=== PATIENT | female | born 1965 | race Caucasian/White ===

== ENCOUNTER 2016-10-29 02:09 | Observation (INO) | payer BC ==
[2016-10-29] VITALS (9 sets, daily range): BP systolic 108–163; BP diastolic 68–109
[~2016-10-29] VITALS: Ht 162.6 cm; Wt 87.6 kg
[~2016-10-29 02:09] MED LIST: AERONEB GO NEB1 EACH MC; ALBUTEROL2.5 MG/NEB INH; ALLEGRA 180MG180 MG PO; CELEXA 20MG TAB20 MG PO; CRESTOR10 MG PO; CRESTOR5 MG PO; ENJUVIA0.3 MG PO; ESCITALOPRAM10 M1 PO; FLEXERIL10 M1 PO; FOSAMAX70 MG PO; LEXAPRO 10 MG T10 MG PO; Mobic7.5 MG PO; PERCOCET 5/3251 EACH PO; PREDNISONE 5MG.5 MG PO; PREMARIN0.3 MG PO
--- NOTE | 2016-10-29 02:54 | Emergency Room Report ---
See Addendum History of Present Illness Time Seen by MD Salinas Presenting Problem in Triage Pt arrived:Wheelchair Presenting Problem:C/O MID CHEST PAIN WITH SOB AND WHEEZING WITH PRODUCTIVE COUGH WITH YELLOW SPUTUM. HAD BIOPSY OF NODULES OF LUNG ON SATURDAY AT [facility]. WAS SEEN IN THIS ED ON SATURDAY AND STARTED ON STEROIDS AND PRESCRIBED NEBS BUT UNABLE TO GET NEB MACHINE TIL SATURDAY. 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 N Clinical Suspician of Infection? Y Mental Status: 1 - Regular (Normal Baseline) Sepsis Risk:Severe Sepsis Risk Have you (or family members/close friends) recently traveled outside the [place]? N If Yes, where/when: Have you had exposure to infectious disease within the past month? N TB? Other? Specify: Source patient, RN notes reviewed, family, old records Exam Limitations no limitations Comment yellow sputum with wheezing over the last 2 days - was seen at with bx and was in the ed sat Cardiac Chest Pain Chest pain indicative of cardiac No Timing/Duration this evening Severity moderate ALLERGIES Coded Allergies: No Known Allergies (09/25/16) Home Medications Active Scripts Nebulizer (Aeroneb Go Nebuliser) 1 EACH QID #1 EACH Prov: 10/27/16 ALBUTEROL (Albuterol 0.083% Neb) 2.5 MG INH QID #120 VIAL Ref 1 Prov: 10/27/16 Prednisone (Prednisone 5MG) 5 MG PO DIRECTED #39 TAB Prov: 10/27/16 Reported Medications Rosuvastatin Calcium (Crestor) 5 MG PO DAILY Conjugated Estrogens (Premarin) 0.3 MG PO DAILY Alendronate Sodium (Fosamax) 70 MG PO WEEKLY Fexofenadine Hydrochloride (Fatou 180MG Tablet) 180 MG PO DAILY Escitalopram Oxalate 10 MG PO DAILY #90 History Medical History General CAD? No Angina: No IN: No Hypertension? No Hyperlipidemia? Yes CHF? No DVT? No PE? No COPD? No Asthma? No Anemia? No GERD? No Gastric ulcers? No GI Bleed? No Hernia? No Thyroid Problems? No Hypothyroidism? No CVA? No Seizures? No Diabetes? No Renal Insuffiency? No End Stage Renal Disease? No UTI? Yes Stones? No GB Disease: No Nephritic Syndrome? No Asplenia? No Hepatitis? No Sickle Cell Disease? No Arthritis? Yes Migraines? No Cataracts? No Glaucoma? No MRSA? No HIV? No TB? No Anxiety? Yes Depression? No Cancer? No More? 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 Respiratory cough, shortness of breath, wheezing Cardiovascular denies chest pain, denies palpitations, denies syncope Gastrointestinal denies abdominal pain, denies diarrhea, denies vomiting Genitourinary denies: dysuria, frequency, hesitancy. Musculoskeletal denies back pain, denies joint pain, denies joint swelling, denies neck pain Skin denies rash Psychiatric/Neurological denies headache, denies seizure Physical Exam Vital Signs Vital Signs Date Time Temp Pulse Resp B/P Pulse O2 O2 Flow FiO2 Ox Delivery Rate 10/29 0349 99.0 104 24 134/91 95 10/29 0313 99.0 94 24 146/95 99 10/29 0242 99.0 104 24 153/93 94 10/29 0214 99.0 109 24 163/109 96 - WBC >12,000 or <4,000 or 10% bands? 2 or more SIRS Criteria Met? B/P:134/91 MAP:127 Creatinine >2.0? UA output<0.5ml/kg/hr for 2 hrs? Platelet count >100,000? Lactate >2.0mmol/1? INR >1.2 or PTT > than 60 sec? Evidence of Organ Dysfunction? Provider documented clinical suspician of infection? Y Sepsis Criteria Count: 2 Sepsis Risk: General Appearance no apparent distress Eye Exam - bilateral eye PERRL, bilateral eye EOMI Ear, Nose, Throat normal ENT inspection Neck supple Respiratory Status No: respiratory distress. Lung Sounds bilateral: rhonchi, wheezing. 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 No Results/Orders Laboratory Tests 10/29/16 0306: B-Natriuretic Peptide Cancelled 10/29/16 0240: Lactic Acid 1.6 10/29/16 0240: Sodium 139, Potassium 3.6, Chloride 103, Carbon Dioxide 26, BUN 17, Creatinine 0.8, Estimated Creat Clear 111, Estimated GFR (MDRD) 75, Glucose 132 H, Calcium 8.4 L, Total Bilirubin 0.6, AST 20, ALT 21, Alkaline Phosphatase 81, Creatine Kinase 154, CK-MB (CK-2) Rel Index 1.0, CK and CKMB Interp 1.6, Troponin I < 0.02, B-Natriuretic Peptide 47, Total Protein 7.8, Albumin 3.7, Globulin 4.1 H, Albumin/Globulin Ratio 0.9 L, WBC 16.1 H, RBC 5.12, Hgb 15.3, Hct 44.6, MCV 87.0, RDW 13.3, Plt Count 227, MPV 6.8 L, Gran % 85.1 H, Gran # 13.7 H, Total Counted 100, Lymphocytes % 8.9 L, Monocytes % 4.7, Eosinophils % 1.2, Basophils % 0.1, Neutrophils 84 H, Band Neutrophils 9 H, Lymphocytes (Manual) 6 L, Lymphocytes # 1.4, Monocytes (Manual) 1 L, Monocytes # 0.8, Eosinophils # 0.2, Basophils # 0.0, RBC/WBC/PLT Morphology NORMAL, Platelet Estimate NORMAL, PUBS MCHC 34.3, MCH 29.8 Current Medication Orders Sig/Alix Start time Last Medication Dose Route Stop Time Status Admin Furosemide 40 MG ONCE ONE 10/29 314 DC 10/29 IV 10/29 Methylprednisolone 125 MG ONCE ONE 10/29 314 DC 10/29 Sodium Succinate IV 10/29 Furosemide 0 .STK-MED ONE 08/21 0308 DC .ROUTE Methylprednisolone 0 .STK-MED ONE 10/29 0308 DC Sodium Succinate .ROUTE Albuterol/Ipratropium 0 .STK-MED ONE 10/29 0306 DC INH Albuterol 2.5 MG ONCE ONE 10/29 0300 DC 10/29 INH 10/29 030 0321 Aspirin 324 MG ONCE ONE 10/29 0230 DC 10/29 PO 10/29 023 0227 Aspirin 0 .STK-MED ONE 10/29 022 DC .ROUTE Sodium Chloride 10 ML PRN PRN 10/29 021 AC IV 10/30 021 Orders Procedure Date/time Status RT REQUEST ALBUTEROL NEB 10/29 025 Active CHEST-PORTABLE 10/29 025 Active DIFFERENTIAL-WBC 10/29 024 Complete ELECTROCARDIOGRAM REQUEST 10/29 212 Active IV SALINE LOCK 10/29 212 Active 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 ST/Twave chgs XRAY/CT/US XRAY/CT/US XRAY chest XR interpretation by reviewed by me Xray Results abnormal (congestion) Departure Departure Time of Disposition 0412 Disposition Still a Patient Clinical Impression Primary Impression: CAP (community acquired pneumonia) Qualifiers: Laterality: right Lung location: unspecified part of lung Qualified Code: J18.9 - Pneumonia, unspecified organism Condition STABLE Referrals Bj Lee MD (Family) discussed with dr lee ED Critical Care Critical Care No at [id number]
--- NOTE | 2016-10-29 02:54 | Emergency Room Report ---
See Addendum History of Present Illness Time Seen by MD Salinas Presenting Problem in Triage Pt arrived:Wheelchair Presenting Problem:C/O MID CHEST PAIN WITH SOB AND WHEEZING WITH PRODUCTIVE COUGH WITH YELLOW SPUTUM. HAD BIOPSY OF NODULES OF LUNG ON SATURDAY AT [facility]. WAS SEEN IN THIS ED ON SATURDAY AND STARTED ON STEROIDS AND PRESCRIBED NEBS BUT UNABLE TO GET NEB MACHINE TIL SATURDAY. 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 N Clinical Suspician of Infection? Y Mental Status: 1 - Regular (Normal Baseline) Sepsis Risk:Severe Sepsis Risk Have you (or family members/close friends) recently traveled outside the [place]? N If Yes, where/when: Have you had exposure to infectious disease within the past month? N TB? Other? Specify: Source patient, RN notes reviewed, family, old records Exam Limitations no limitations Comment yellow sputum with wheezing over the last 2 days - was seen at with bx and was in the ed sat Cardiac Chest Pain Chest pain indicative of cardiac No Timing/Duration this evening Severity moderate ALLERGIES Coded Allergies: No Known Allergies (09/25/16) Home Medications Active Scripts Nebulizer (Aeroneb Go Nebuliser) 1 EACH QID #1 EACH Prov: 10/27/16 ALBUTEROL (Albuterol 0.083% Neb) 2.5 MG INH QID #120 VIAL Ref 1 Prov: 10/27/16 Prednisone (Prednisone 5MG) 5 MG PO DIRECTED #39 TAB Prov: 10/27/16 Reported Medications Rosuvastatin Calcium (Crestor) 5 MG PO DAILY Conjugated Estrogens (Premarin) 0.3 MG PO DAILY Alendronate Sodium (Fosamax) 70 MG PO WEEKLY Fexofenadine Hydrochloride (Fatou 180MG Tablet) 180 MG PO DAILY Escitalopram Oxalate 10 MG PO DAILY #90 History Medical History General CAD? No Angina: No [place]: No Hypertension? No Hyperlipidemia? Yes CHF? No DVT? No PE? No COPD? No Asthma? No Anemia? No GERD? No Gastric ulcers? No GI Bleed? No Hernia? No Thyroid Problems? No Hypothyroidism? No CVA? No Seizures? No Diabetes? No Renal Insuffiency? No End Stage Renal Disease? No UTI? Yes Stones? No GB Disease: No Nephritic Syndrome? No Asplenia? No Hepatitis? No Sickle Cell Disease? No Arthritis? Yes Migraines? No Cataracts? No Glaucoma? No MRSA? No HIV? No TB? No Anxiety? Yes Depression? No Cancer? No More? 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 Respiratory cough, shortness of breath, wheezing Cardiovascular denies chest pain, denies palpitations, denies syncope Gastrointestinal denies abdominal pain, denies diarrhea, denies vomiting Genitourinary denies: dysuria, frequency, hesitancy. Musculoskeletal denies back pain, denies joint pain, denies joint swelling, denies neck pain Skin denies rash Psychiatric/Neurological denies headache, denies seizure Physical Exam Vital Signs Vital Signs Date Time Temp Pulse Resp B/P Pulse O2 O2 Flow FiO2 Ox Delivery Rate 10/29 0349 99.0 104 24 134/91 95 10/29 0313 99.0 94 24 146/95 99 10/29 0242 99.0 104 24 153/93 94 10/29 0214 99.0 109 24 163/109 96 - WBC >12,000 or <4,000 or 10% bands? 2 or more SIRS Criteria Met? B/P:134/91 MAP:127 Creatinine >2.0? UA output<0.5ml/kg/hr for 2 hrs? Platelet count >100,000? Lactate >2.0mmol/1? INR >1.2 or PTT > than 60 sec? Evidence of Organ Dysfunction? Provider documented clinical suspician of infection? Y Sepsis Criteria Count: 2 Sepsis Risk: General Appearance no apparent distress Eye Exam - bilateral eye PERRL, bilateral eye EOMI Ear, Nose, Throat normal ENT inspection Neck supple Respiratory Status No: respiratory distress. Lung Sounds bilateral: rhonchi, wheezing. 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 No Results/Orders Laboratory Tests 10/29/16 0306: B-Natriuretic Peptide Cancelled 10/29/16 0240: Lactic Acid 1.6 10/29/16 0240: Sodium 139, Potassium 3.6, Chloride 103, Carbon Dioxide 26, BUN 17, Creatinine 0.8, Estimated Creat Clear 111, Estimated GFR (MDRD) 75, Glucose 132 H, Calcium 8.4 L, Total Bilirubin 0.6, AST 20, ALT 21, Alkaline Phosphatase 81, Creatine Kinase 154, CK-MB (CK-2) Rel Index 1.0, CK and CKMB Interp 1.6, Troponin I < 0.02, B-Natriuretic Peptide 47, Total Protein 7.8, Albumin 3.7, Globulin 4.1 H, Albumin/Globulin Ratio 0.9 L, WBC 16.1 H, RBC 5.12, Hgb 15.3, Hct 44.6, MCV 87.0, RDW 13.3, Plt Count 227, MPV 6.8 L, Gran % 85.1 H, Gran # 13.7 H, Total Counted 100, Lymphocytes % 8.9 L, Monocytes % 4.7, Eosinophils % 1.2, Basophils % 0.1, Neutrophils 84 H, Band Neutrophils 9 H, Lymphocytes (Manual) 6 L, Lymphocytes # 1.4, Monocytes (Manual) 1 L, Monocytes # 0.8, Eosinophils # 0.2, Basophils # 0.0, RBC/WBC/PLT Morphology NORMAL, Platelet Estimate NORMAL, PUBS MCHC 34.3, MCH 29.8 Current Medication Orders Sig/Alix Start time Last Medication Dose Route Stop Time Status Admin Furosemide 40 MG ONCE ONE 10/29 314 DC 10/29 IV 10/29 Methylprednisolone 125 MG ONCE ONE 10/29 314 DC 10/29 Sodium Succinate IV 10/29 Furosemide 0 .STK-MED ONE 08/21 0308 DC .ROUTE Methylprednisolone 0 .STK-MED ONE 10/29 0308 DC Sodium Succinate .ROUTE Albuterol/Ipratropium 0 .STK-MED ONE 10/29 0306 DC INH Albuterol 2.5 MG ONCE ONE 10/29 0300 DC 10/29 INH 10/29 030 0321 Aspirin 324 MG ONCE ONE 10/29 0230 DC 10/29 PO 10/29 023 0227 Aspirin 0 .STK-MED ONE 10/29 022 DC .ROUTE Sodium Chloride 10 ML PRN PRN 10/29 021 AC IV 10/30 021 Orders Procedure Date/time Status RT REQUEST ALBUTEROL NEB 10/29 025 Active CHEST-PORTABLE 10/29 025 Active DIFFERENTIAL-WBC 10/29 024 Complete ELECTROCARDIOGRAM REQUEST 10/29 212 Active IV SALINE LOCK 10/29 212 Active 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 ST/Twave chgs XRAY/CT/US XRAY/CT/US XRAY chest XR interpretation by reviewed by me Xray Results abnormal (congestion) Departure Departure Time of Disposition 0412 Disposition Still a Patient Clinical Impression Primary Impression: CAP (community acquired pneumonia) Qualifiers: Laterality: right Lung location: unspecified part of lung Qualified Code: J18.9 - Pneumonia, unspecified organism Condition STABLE Referrals Bj Lee MD (Family) discussed with dr lee ED Critical Care Critical Care No at 0293
[2016-10-29 02:58] LABS: HEMOGLOBIN 15.3 g/dL (12.2-16.2); LYMPH # 1.4 K/mm3 (0.7-4.5); LYMPH % 8.9 % (10-50.0)
[2016-10-29 03:13] LABS: NEUTROPHILS 84 % (42-76)
[2016-10-29 03:23] LABS: BUN 17 mg/dL (7-18); GFR (ESTIMATED) 75 ML/MIN (59-)
[2016-10-29] MEDS ORDERED: ESTRADIOL0.5 MG PO (05:39)
[2016-10-29] MEDS ORDERED: BISOPROLOL 5MG T5 MG PO (05:40)
[2016-10-29] MEDS ORDERED: ZANTAC 150150 MG PO (05:41)
--- NOTE | 2016-10-29 05:51 | RADIOLOGY REPORT PS360 ---
CHEST-PORTABLE HISTORY: None c/o chest pain and sob ORDERING PHYSICIAN: Bj Luna MD PATIENT AGE: 51 years COMPARISON: 10/27/2016 FINDINGS: Study is somewhat underpenetrated. There is mild cardiomegaly and the pulmonary vessels are slightly prominent. This raises the suspicion of mild CHF. No lobar consolidation or collapse. No obvious pneumothorax. IMPRESSION: Somewhat limited exam with suggestion of mild CHF. No evidence of pneumothorax
--- NOTE | 2016-10-29 07:28 | PHARMACY CLINIC NOTE ---
Patient Demographics Patient Demographics Admission date: 10/29/16 Date: 10/29/16 Time: 726 Allergies Coded Allergies: No Known Allergies (09/25/16) HEIGHT- FT: 5 IN: 4.00 K.629 VTE General Information Labs: Laboratory Tests 10/29 0240 Hematology Hgb (12.2 - 16.2 g/dL) 15.3 Hct (37.0 - 47.0 %) 44.6 Plt Count (142 - 424 K/mm3) 227 Disclaimer The following section includes nursing documentation that has been pulled in for pharmacy review. Patient's VTE score: 7 Patient's VTE Risk: MOD RISK Clinical trial participant? No VTE prophylaxis [id number] VTE prophylaxis ordered? Yes Type of prophylaxis/treatment: ANALILIA at 0727
--- NOTE | 2016-10-29 08:50 | HISTORY AND PHYSICAL REPORT ---
Demographics: Admit date: 10/29/16 Chief complaint: Shortness of air/cough PRIMARY DIAGNOSIS: CAP Allergies: Coded Allergies: No Known Allergies (09/25/16) History of present illness: History of present illness: 51-year-old white female with obstructive lung disease of uncertain etiology, whose had reduction in lung function over the past year or so, and workup through pulmonary service culminated in bronchoscopy procedure at [facility] on October 26. The procedure was uncomplicated, and patient was discharged. Unfortunately, the day after, patient began to have scant levels of hemoptysis and slight shortness of air, and came to the emergency department here where labs, chest x-ray and evaluation were unremarkable and she was discharged home. However, the patient failed to improve, and began to have shortness of air, low- grade fevers and coughing up yellow sputum with occasional blood tinge. Came back to the emergency department early in the morning hours today, found to have low-grade temperature elevation, leukocytosis, evidence of "CHF" on chest x-ray, and was admitted to hospital for IV steroids and antibiotics This morning she feels somewhat better but continues to feel like her breathing is "tight." Past medical history: Family HX Diabetes Yes CAD No Hypertension Yes Hyperlipidemia Yes Cancer No TB No Immunization HX DT/Tetanus 5-10 Years Ago Flu LAST YEAR Pneumonia Received In Past TB Test in last year No General CAD? No Angina: No [place]: No Hypertension? No Hyperlipidemia? Yes CHF? No DVT? No PE? No COPD? No Asthma? No Anemia? No GERD? No Gastric ulcers? No GI Bleed? No Hernia? No Thyroid Problems? No Hypothyroidism? No CVA? No Seizures? No Diabetes? No Renal Insuffiency? No UTI? Yes Stones? No GB Disease: No Nephritic Syndrome? No Asplenia? No Hepatitis? No Sickle Cell Disease? No Arthritis? Yes Migraines? No Cataracts? No Glaucoma? No MRSA? No HIV? No TB? No Anxiety? Yes Depression? No Cancer? No More? 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 No Patien't marital status is Patient's support system is excellent Review of systems: Constitutional fever, malaise, weakness. Respiratory shortness of breath, SOB with excertion, SOB at rest. Cardiovascular No no symptoms reported Gastrointestinal/Abdominal No no symptoms reported Genitourinary No: no symptoms reported. Musculoskeletal No: no symptoms reported. Neurological No: see HPI. Exam: Lab data for last 24 hours: Laboratory Tests 10/29/16 0240: Lactic Acid 1.6 10/29/16 0240: Sodium 139, Potassium 3.6, Chloride 103, Carbon Dioxide 26, BUN 17, Creatinine 0.8, Estimated Creat Clear 111, Estimated GFR (MDRD) 75, Glucose 132 H, Calcium 8.4 L, Total Bilirubin 0.6, AST 20, ALT 21, Alkaline Phosphatase 81, Creatine Kinase 154, CK-MB (CK-2) Rel Index 1.0, CK and CKMB Interp 1.6, Troponin I < 0.02, B-Natriuretic Peptide 47, Total Protein 7.8, Albumin 3.7, Globulin 4.1 H, Albumin/Globulin Ratio 0.9 L, WBC 16.1 H, RBC 5.12, Hgb 15.3, Hct 44.6, MCV 87.0, RDW 13.3, Plt Count 227, MPV 6.8 L, Gran % 85.1 H, Gran # 13.7 H, Total Counted 100, Lymphocytes % 8.9 L, Monocytes % 4.7, Eosinophils % 1.2, Basophils % 0.1, Neutrophils 84 H, Band Neutrophils 9 H, Lymphocytes (Manual) 6 L, Lymphocytes # 1.4, Monocytes (Manual) 1 L, Monocytes # 0.8, Eosinophils # 0.2, Basophils # 0.0, RBC/WBC/PLT Morphology NORMAL, Platelet Estimate NORMAL, PUBS MCHC 34.3, MCH 29.8 Microbiology 10/29 709 SPUTUM: Sputum Culture - RES 10/29 709 SPUTUM: Gram Stain - RES 10/30 239 BLOOD: Anaerobic Blood Culture - RECD 10/30 239 BLOOD: Aerobic Blood Culture - RECD 10/30 239 BLOOD: Anaerobic Blood Culture - RECD 10/30 239 BLOOD: Aerobic Blood Culture - RECD Admission vital signs: 1ST Vital Signs Result Date Time Pulse Ox 96 10/29 213 B/P 163/109 10/29 213 Temp 99.0 10/29 213 Pulse 109 10/29 213 Resp 24 10/29 213 O2 Delivery ROOM AIR 10/29 516 Additional information: The patient is pleasant, alert, oriented x3. In no respiratory distress, does have audible rhonchi on expiration during conversation. Lungs have rhonchi and coarsened airway movements both expiratory and expiratory throughout all lung hopson, no basilar crackles and no actual wheezing noted. Her rate slightly tachycardic but regular. No murmurs. Abdomen soft. No clubbing , no cyanosis. No edema. Cranial nerves are symmetric. No deficits of peripheral strength or sensory examinations Plan: Problem List 1. Reactive airway disease 2. COPD (chronic obstructive pulmonary disease) Plan: Plan will be to observe in hospital. Agree with antibiotics and steroids while cultures are pending. Obviously await bronchoscopy results. Lasix was given in the emergency department with almost 1 L output. However, this has not significantly improved patient's dyspnea. Pulmonary consultation. at 0849
[2016-10-30 04:00] VITALS: BP 148/81
[2016-10-30 06:05] LABS: HEMOGLOBIN 14.4 g/dL (12.2-16.2); LYMPH # 0.8 K/mm3 (0.7-4.5); LYMPH % 4.6 % (10-50.0)
[2016-10-30 08:16] LABS: NEUTROPHILS 88 % (42-76)
--- NOTE | 2016-10-30 08:21 | ACUTE CARE PROGRESS NOTE (QUA) ---
Progress Notes Subjective Date 10/30/16 Time 0820 Note Patient is doing well through the night with no oxygen requirement, and normal vital signs with no tachypnea or significant tachycardia. She continues to have some rhonchi that is audible on exam without the stethoscope and some coarsening of her airway sounds bilaterally on expiration with minimal wheezing with forced expiration. Symmetric air movement noted. No crackles. Heart rate regular. Abdomen soft, patient awake and alert, no cyanosis. Objective Findings Last VS-Temp:98.0 B/P:148/81 Pulse:94 Resp:20 SaO2:95 ROOM AIR Last weight lbs:193 oz:3 K.629 Method:Bed Scales Assessment/Plan Problem List 1. Reactive airway disease 2. COPD (chronic obstructive pulmonary disease) Patient condition Improving Plan: continue current care, recheck chest x-ray. Dr. Lechuga consultation today. Probable discharge after this consultations accomplished. This inpt stay is expected to cross 2 MNs from start of care No at 0821
[2016-10-30 08:38] VITALS: BP 136/89
[2016-10-30 08:52] VITALS: BP 136/89
--- NOTE | 2016-10-30 11:51 | RADIOLOGY REPORT PS360 ---
CHEST(2 VIEWS-NOT PORTABLE) HISTORY: wheezing ORDERING PHYSICIAN: Bj Luna MD PATIENT AGE: 51 years COMPARISON: 10/29/2016 FINDINGS: Mild cardiomegaly with interval improvement in the pulmonary venous congestion.. There is increased density in the left lower lobe consistent with pneumonia and/or atelectatic change. Atelectatic changes are also present in the right perihilar region. No acute bony anomalies. IMPRESSION: Developing infiltrate and/or atelectatic change in the left lower lobe and right perihilar region.
[2016-10-30 12:21] VITALS: BP 142/88
--- NOTE | 2016-10-30 17:14 | CONSULT NOTE ---
Consult Note Note: Reason for consultation: Dyspnea post bronchoscopy. Requested by: Dr. Moore Chief complaint: "I got so short of breath." History of present illness: Mrs. Saravia is a 51-year-old woman whom I initially evaluated with practitioner Fabiana on October 08 of this year. She was sent by you because of persistent dyspnea, cough and wheezing which had progressed over the last several years. She had little or no response to inhaled bronchodilators and corticosteroids and an ALLERGY evaluation disclosed no significant response to any common allergens. She had a history of frequent tonsillitis as a child and tonsillectomy when she was in her 30s. She had also had frequent episodes of acute bronchitis and pneumonia on several occasions. Recurrent infections had not been a recent problem, however. She never smoked cigarettes. Spirometry disclosed moderate to severe obstruction without a significant response to inhaled bronchodilator. A CT scan of the chest performed on September 25 demonstrated "numerous noncalcified pulmonary nodules.associated with bilateral hilar and mediastinal adenopathy." There is evidence of remote granulomatous disease and that is calcification in the hilar region and in some of the mediastinal nodes. There is some nodularity along the LEFT major fissure in the upper lobe. Because of her prolonged symptoms despite never smoking, wheezing, especially over the tracheal area, lack of response to therapy and abnormalities on CT scan , I sent her for bronchoscopy which was accomplished last Saturday. She apparently vomited (according to her although this is not in the bronchoscopy note) and was not feeling well when she was discharged. She came to our emergency room 2 days later and was treated for an exacerbation of asthma. She continued to feel more short of breath, was coughing more and occasionally expectorating blood associated with wheezing and was admitted here 2 days ago. She has improved on corticosteroid and antibiotic therapy given for post bronchoscopy aspiration pneumonia. However, she is still not back to her baseline level of functioning. Past medical history: This is significant for Otuag-Pbgjezjts-Ycxwz syndrome treated with ablation therapy. She is on bisoprolol apparently for this. She also has a history of restless leg syndrome treated with ropinirole. Past surgical history: Cholecystectomy, hysterectomy, tonsillectomy and carpal tunnel surgery. Family history: This is negative for respiratory problems but there is a history of kidney cancer. Social history: She is and her is at the bedside. She has a son. Review of systems: Apart from the systems mentioned in the present illness, she has had occasional sores within her nose and nasal congestion intermittently; intermittent diarrhea, diffuse joint pains and a history of reflex sympathetic dystrophy. There is a history of anxiety. The rest of the 14 point review of systems is currently negative. On physical examination, Mrs. Saravia is a very pleasant, overweight woman who was sitting in bed at around 40 degrees elevation. She was in no acute distress but coughed intermittently. Vital signs: Blood pressure 142/88, pulse 93, temperature 98.1 (high of 99.4), respiratory rate 20 and oxygen saturation 94 percent on room air. HEENT: Sclerae clear; conjunctivae pink; EOMs full; pupils are equal, round and reactive to light and accommodation; oropharynx unremarkable. Neck: No adenopathy Chest: Symmetrical expansion; normal percussion note bilaterally; inspiratory and expiratory wheezes with an prominent inspiratory wheeze over the trachea just below the manubrium. No crackles. Heart: Regular rhythm; no murmur. Abdomen: Bowel sounds present; soft, nontender, no masses or organomegaly. Skin: No rash Musculoskeletal: No gabo arthritis Neurological: Grossly intact Extremities: No clubbing or edema. I personally reviewed the CT scan of the chest and the chest x-ray from today. On the x-ray, there is the appearance of a linear density near the RIGHT hilum and perhaps against the LEFT major fissure. Complete blood count demonstrates leukocytosis now since starting corticosteroids. A metabolic panel showed an elevated globulin. The glucose became elevated after starting corticosteroids. We had ordered laboratory testing when she was seen in [place] and her angiotensin-converting enzyme, sedimentation rate, antineutrophil cytoplasmic antibody, C-reactive protein and immunoglobulin profile were in the normal range or negative. An anti-nuclear antibody was weakly positive at 1-160 with a speckled pattern. After I evaluated her today, the biopsy results from the bronchoscopy returned and cytology of mediastinal nodes showed cells possibly consistent with granulomatous inflammation. Endobronchial biopsies of the RIGHT upper lobe showed chronic inflammatory cells. Cultures are pending. Assessment and plan: Mrs. Saravia has been troubled by persistent cough and wheezing and shortness of breath which is associated with abnormalities on CT scan of the chest. The CT findings do suggest Sarcoidosis but I'm not yet certain that this is the diagnosis. I'd like to reflect and get to know her better and follow up with her soon. She has an appointment with us on November 16. Although she is improved, she is really not back to her baseline level of functioning and I think should benefit from another day in the hospital. Thank you for the opportunity to participate in Mrs. Saravia's care. at [phone]
[2016-10-30 20:12] VITALS: BP 143/84
[2016-10-30 20:30] VITALS: BP 143/84
[2016-10-31 00:07] VITALS: BP 145/93
[2016-10-31 04:46] VITALS: BP 146/90
[2016-10-31 08:00] VITALS: BP 146/91
--- NOTE | 2016-10-31 08:21 | ACUTE CARE PROGRESS NOTE (QUA) ---
Progress Notes Subjective Date 10/31/16 Time 0817 Note Patient reports ongoing wheezing and some dyspnea with exertion but overall improved and feels like she rested better last night. Still with some cough but only occasional sputum production. Exam reveals pleasant female, breathing easily at rest, mild conversational dyspnea. Heart with RRR, lungs with diffuse wheezes, no focal rales. Abdomen is soft, + BS. No edema, extremities are warm. Moves all extremities, oriented without focal neurologic deficits. Patient/family reports: feeling better, cough, shortness of breath Nursing reports: shortness of breath Objective Findings Last VS-Temp:98.0 B/P:146/90 Pulse:84 Resp:18 SaO2:92 ROOM AIR Last weight lbs:193 oz:3 K.[id number] Method:Bed Scales Reviewed: medications, vital signs, lab results, consult note Assessment/Plan Problem List 1. Reactive airway disease 2. COPD (chronic obstructive pulmonary disease) 3. CAP (community acquired pneumonia) Qualifiers: Laterality: right Lung location: unspecified part of lung Qualified Code: J18.9 - Pneumonia, unspecified organism Patient condition Improving, Stable Plan: initiate discharge plan This inpt stay is expected to cross 2 MNs from start of care No
[2016-10-31 09:00] VITALS: BP 146/91
[2016-10-31] MEDS ORDERED: PREDNISONE 20MG20 MG PO (10:41)
[2016-10-31] MEDS ORDERED: ZITHROMAX Z PA250 MG PO (10:42)
[2016-10-31 12:11] VITALS: BP 158/95
--- NOTE | 2016-10-31 12:53 | DISCHARGE SUMMARY STANDARD ---
Demographics Admit date: 10/29/16 Discharge date: 10/31/16 History of present illness History of present illness 51-year-old white female with obstructive lung disease of uncertain etiology, whose had reduction in lung function over the past year or so, and workup through pulmonary service culminated in bronchoscopy procedure at [facility] on Saturday, October 26. The procedure was uncomplicated, and patient was discharged. Unfortunately, the day after, patient began to have scant levels of hemoptysis and slight shortness of air, and came to the emergency department here where labs, chest x-ray and evaluation were unremarkable and she was discharged home. However, the patient failed to improve, and began to have shortness of air, low- grade fevers and coughing up yellow sputum with occasional blood tinge. Came back to the emergency department early in the morning hours today, found to have low-grade temperature elevation, leukocytosis, evidence of "CHF" on chest x-ray, and was admitted to hospital for IV steroids and antibiotics This morning she feels somewhat better but continues to feel like her breathing is "tight." Hospital Course Hospital Course: Patient was admitted and started on community acquired protocol with zithromax and rocehin, as well as solumedrol IV. She gradually improved and has less dyspnea on day of discharge but persistent wheezing. She was seen yesterday by Dr Lechuga who recommended continue current care and FU with him in clinic as scheduled in November. Bronchoscopy cultures are still pending. On day of discharge her exam is slightly improved and she feels ready for DC with close FU. She will be discharged with PO prednisone 20mg BID and zithromax. Already has a nebulizer at home and a script for albuterol. She is anxious to get back to work which will be discussed during her office FU on Saturday. Discharge diagnoses Problem List 1. Reactive airway disease 2. COPD (chronic obstructive pulmonary disease) 3. CAP (community acquired pneumonia) Medications Medications: Discharge meds are as noted. Follow up Follow up in office in: 2 DAYS with: Bj Luna MD at [phone]
[2016-10-31 13:33] VITALS: BP 158/95
--- OUTSIDE RECORDS SUMMARY | 2016-12-12 04:45 | External Medical Summary Rpt ---
Demographics Preferred Language Chinese Marital Status Unknown Restorationism Affiliation Unknown Race Unknown Ethnic Group Unknown Author Author ADDISON Address Unknown Phone Immunization No patient found.
--- OUTSIDE RECORDS SUMMARY | 2016-12-12 04:45 | External Medical Summary Rpt ---
Author Author , ADDISON JAIME Address Unknown Phone [email or web address] Purpose Continuity of Care Document - 10-08-2016 through 2016 Problems Code Diagnosis DOS Provider Status J18.9 PNEUMONIA, UNSPECIFIED ORGANISM J44.9 CHRONIC OBSTRUCTIVE PULMONARY DISEASE, UNSPECIFIED J45.909 UNSPECIFIED ASTHMA, UNCOMPLICAT ED M25.559 PAIN IN UNSPECIFIED HIP Z12.31 Encounter for screening mammogram for malignant neoplasm of breast Results Labs Lab Lab Date Result Refere Interp Status Commen Order Detail nces retati t Range on BOBO SerPl-cCnc (11-16-2016 12:52) BOBO 36 U/L 9-67 complet SerPl-c 017 ed Cnc 12:52 CRP SerPl-mCnc (11-16-2016 12:52) CRP 0.8 0-0.9 complet SerPl-m 017 mg/dL ed Cnc 12:52 ESR Bld Qn (11-16-2016 12:33) ESR Bld 22 0-20 complet Qn 017 mm/hr ed 12:33 Differential panel, method unspecified - (11-02-2016 10:17) LYMPH 13 % 10% - Normal complet 017 50% ed 10:17 Platele NORMAL complet ts 017 ed [Presen 10:17 ce] in Blood by Light microsc opy Erythro NORMAL complet cyte 017 ed morphol 10:17 ogy finding [Identi fier] in Blood Differential panel, method unspecified - (10-30-2016 05:45) LYMPH 9 % 10% - Low complet 017 50% ed 05:45 Platele NORMAL complet ts 017 ed [Presen 05:45 ce] in Blood by Light microsc opy Differential panel, method unspecified - (10-29-2016 02:40) LYMPH 6 % 10% - Low complet 017 50% ed 02:40 Platele NORMAL complet ts 017 ed [Presen 02:40 ce] in Blood by Light microsc opy Erythro NORMAL complet cyte 017 ed morphol 02:40 ogy finding [Identi fier] in Blood Differential panel, method unspecified - (10-27-2016 14:02) LYMPH 5 % 10% - Low complet 017 50% ed 14:02 Platele NORMAL complet ts 017 ed [Presen 14:02 ce] in Blood by Light microsc opy BOBO SerPl-cCnc (10-08-2016 12:34) BOBO 63 U/L 9-67 complet SerPl-c 017 ed Cnc 12:34 IgE SerPl-aCnc (10-08-2016 12:34) IgE 4 kU/L 114 OR complet SerPl-a 017 LESS ed Cnc 12:34 JOHNIE Titr Ser HEp2 subst (10-08-2016 12:33) JOHNIE [id number] complet Titr 017 04 ed Ser 12:33 antibod HEp2 y titer subst measure ment SCT D160 POSITIV E THROUGH 1:160 DILUTIO N L JOHNIE Pat Ser IF-Imp (10-08-2016 12:33) JOHNIE Pat [id number] complet Ser 017 04 ed IF-Imp 12:33 Nucleol ar pattern SCT NCLR NUCLEOL AR L Neutrophil Ab Ser Ql FC (10-08-2016 12:33) Neutrop NONE NONE complet hil Ab 017 DETECTE DETECTE ed Ser Ql 12:33 D D FC
--- OUTSIDE RECORDS SUMMARY | 2016-12-12 04:45 | External Medical Summary Rpt ---
Author Author , ADDISON JAIME Address Unknown Phone [email or web address] Purpose Continuity of Care Document - 10-08-2016 [...] Titr Ser HEp2 subst (10-08-2016 12:33) JOHNIE [id number] complet Titr 017 04 ed Ser 12:33 antibod HEp2 y titer subst measure ment SCT D160 POSITIV E THROUGH 1:160 DILUTIO N L JOHNIE Pat Ser IF-Imp (10-08-2016 12:33) JOHNIE Pat [id number] complet Ser 017 04 ed IF-Imp 12:33 Nucleol ar pattern SCT NCLR NUCLEOL AR L Neutrophil Ab Ser Ql FC (10-08-2016 12:33) Neutrop NONE NONE complet hil Ab 017 DETECTE DETECTE ed Ser Ql 12:33 D D FC
--- OUTSIDE RECORDS SUMMARY | 2016-12-12 04:45 | External Medical Summary Rpt ---
Author Author [employer] Organization [employer] Address Unknown Phone Unavailable Purpose Continuity of Care Document - through 2016
--- OUTSIDE RECORDS SUMMARY | 2016-12-12 04:45 | External Medical Summary Rpt ---
Demographics Preferred Language Kazakh Marital Status Unknown Synagogue Affiliation Unknown Race Unknown Ethnic Group Unknown Author Author ADDISON Address Unknown Phone Immunization No patient found.
--- OUTSIDE RECORDS SUMMARY | 2016-12-12 04:46 | External Medical Summary Rpt ---
Demographics Preferred Language Stateless Marital Status Unknown Amish Affiliation Unknown Race Unknown Ethnic Group Unknown Author Author ADDISON Address Unknown Phone Immunization No patient found.
--- OUTSIDE RECORDS SUMMARY | 2016-12-12 04:46 | External Medical Summary Rpt ---
Author Author ADDISON Flavio, [employer] Address Unknown Phone Unavailable Results CBC W Auto Differential panel in Blood Observa Value Referen Units Interpr Notes Date tion ce etation Range Basophils 0 - 0.2 K/MM3 Normal No Nov 02 inform2016 [#/volume on in 10:17 AM ] in source Blood by data Automated count Basophils 0.1 - 2.0 % Normal No Nov 02 /100 inform2016 leukocyte on in 10:17 AM s in source Blood by data Automated count Eosinophi 0.0 - 0.4 K/mm3 Normal No Nov 02 ls 2016 [#/volume on in 10:17 AM ] in source Blood by data Automated count Eosinophi 0.1 - % Normal No Nov 02 ls/100 12.0 inform2016 leukocyte on in 10:17 AM s in source Blood by data Automated count Granulocy 1.8 - 7.8 K/mm3 High No Nov 02 karlos 2016 [#/volume on in 10:17 AM ] in source Blood by data Automated count Granulocy 37.0 - % High No Nov 02 karlos/100 80.0 2016 leukocyte on in 10:17 AM s in source Blood by data Automated count Hematocri 37.0 - % Normal No Nov 02 t [Volume 47.0 ati 2016 on in 10:17 AM Fraction] source of Blood data Hemoglobi 12.2 - g/dL No No Nov 02 n 16.2 informati informati 2016 [Mass/vol on in on in 10:17 AM ume] in source source Blood data data Lymphocyt 0.7 - 4.5 K/mm3 Normal No Nov 02 es inform2016 [#/volume on in 10:17 AM ] in source Unspecifi data ed specimen by Automated count Lymphocyt 10 - 50.0 % Low No Nov 02 es inform2016 [#/volume on in 10:17 AM ] in source Unspecifi data ed specimen by Automated count Erythrocy 27 - 31.2 pg Normal No Aug 25 te mean 2016 corpuscul on in 10:17 AM ar source hemoglobi data n [Entitic mass] Erythrocy 31.8 - g/dl Normal No Nov 02 te mean 35.4 2016 corpuscul on in 10:17 AM ar source hemoglobi data n concentra tion [Mass/vol ume] by Automated count Erythrocy 82.2 - fl Normal No Nov 02 te mean 97.8 2016 corpuscul on in 10:17 AM ar volume source [Entitic data volume] by Automated count Monocytes 0.1 - 1.0 K/mm3 Normal No Nov 022016 [#/volume on in 10:17 AM ] in source Blood by data Automated count Monocytes 1.7 - 9.3 % Normal No Nov 02 /100 2016 leukocyte on in 10:17 AM s in source Blood by data Automated count Platelet 7.4 - fl Low No Nov 02 mean 10.4 2016 volume on in 10:17 AM [Entitic source volume] data in Blood by Automated count Platelets 142 - 424 K/mm3 Normal No Nov 022016 [#/volume on in 10:17 AM ] in source Blood data Erythrocy 4.2 - 5.4 M/mm3 Normal No Nov 02 karlos 2016 [#/volume on in 10:17 AM ] in source Amniotic data fluid Erythrocy 11.5 - % Normal No Nov 02 te 17.5 2016 distribut on in 10:17 AM ion width source [Entitic data volume] by Automated count Leukocyte 4.8 - K/MM3 High No Nov 02 s 10.8 2016 [#/volume on in 10:17 AM ] in source Blood data Differential panel, method unspecified - Observa Value Referen Units Interpr Notes Date tion ce etation Range LYMPH 13 10 - 50 % Normal No Nov 022016 tion in 10:17 source AM data Monocytes 2 - 9 % Normal No Nov 02 /100 2016 leukocyte on in 10:17 AM s in source Blood by data Automated count Platele NORMAL No No No No Nov 02 ts informa informa informa inform2016 [Presen tion in tion in tion in tion in 10:17 ce] in source source source source AM Blood data data data data by Light microsc opy Neutrophi 42 - 76 % High No Nov 02 ls 2016 [#/volume on in 10:17 AM ] in source Blood by data Automated count Erythro NORMAL No No No No Nov 02 cyte informa informa informa informa 2017 morphol tion in tion in tion in tion in 10:17 ogy source source source source AM finding data data data data [Identi fier] in Blood Cells No #CELLS No No Nov 02 Counted informati informati informati 2016 Total [#] on in on in on in 10:17 AM in Blood source source source data data data Basic metabolic panel in Blood Observa Value Referen Units Interpr Notes Date ti ce etation Range Urea 7 - 18 mg/dL High No Nov 02 nitrogen informati 2016 [Mass/vol on in 10:17 AM ume] in source Serum or data Plasma Calcium 8.5 - mg/dL Normal No Nov 02 [Mass/vol 10.1 informati 2016 ume] in on in 10:17 AM Serum or source Plasma data Chloride 98 - 107 mmoL/L Normal No Nov 02 [Moles/vo informati 2016 lume] in on in 10:17 AM Serum or source Plasma data Carbon 21.0 - mmoL/L Normal No Nov 02 dioxide, 32.0 informati 2016 total on in 10:17 AM [Moles/vo source lume] in data Serum or Plasma Creatinin 0.55 - mg/dL Normal No Nov 02 e 1.02 informati 2016 [Mass/vol on in 10:17 AM ume] in source Serum or data Plasma Estimated 59- ML/MIN No REFERENCE Nov 02 informati RANGE: 2017 glomerula on in >60 10:17 AM r source ML/MIN/1. filtratio data 73 SQUARE n rate METERSIf (GF this patient is -A merican, then multiply theresult by 1.210. Glucose 74 - 106 mg/dL High No Nov 02 [Mass/vol informati 2016 ume] in on in 10:17 AM Serum or source Plasma data Potassium 3.5 - 5.1 mmoL/L Normal No Nov 02 informati 2016 [Moles/vo on in 10:17 AM lume] in source Serum or data Plasma Sodium 136 - 145 mmoL/L Normal No Nov 02 [Moles/vo informati 2017 lume] in on in 10:17 AM Serum or source Plasma data CBC W Auto Differential panel in Blood Observa Value Referen Units Interpr Notes Date ti ce etation Range Basophils 0 - 0.2 K/MM3 Normal No Oct 30 informati 2016 5:45 [#/volume on in AM ] in source Blood by data Automated count Basophils 0.1 - 2.0 % Normal No Oct 30 /100 informati 2016 5:45 leukocyte on in AM s in source Blood by data Automated count Eosinophi 0.0 - 0.4 K/mm3 Normal No Oct 30 ls informati 2016 5:45 [#/volume on in AM ] in source Blood by data Automated count Eosinophi 0.1 - % Normal No Oct 30 ls/100 12.0 informati 2016 5:45 leukocyte on in AM s in source Blood by data Automated count Granulocy 1.8 - 7.8 K/mm3 High No Oct 30 karlos informati 2016 5:45 [#/volume on in AM ] in source Blood by data Automated count Granulocy 37.0 - % High No Oct 30 karlos/100 80.0 informati 2016 5:45 leukocyte on in AM s in source Blood by data Automated count Hematocri 37.0 - % Normal No Oct 30 t [Volume 47.0 informati 2016 5:45 on in AM Fraction] source of Blood data Hemoglobi 12.2 - g/dL Normal No Oct 30 n 16.2 informati 2016 5:45 [Mass/vol on in AM ume] in source Blood data Lymphocyt 0.7 - 4.5 K/mm3 Normal No Oct 30 es informati 2016 5:45 [#/volume on in AM ] in source Unspecifi data ed specimen by Automated count Lymphocyt 10 - 50.0 % Low No Oct 30 es informati 2016 5:45 [#/volume on in AM ] in source Unspecifi data ed specimen by Automated count Erythrocy 27 - 31.2 pg Normal No Oct 30 te mean informati 2016 5:45 corpuscul on in AM ar source hemoglobi data n [Entitic mass] Erythrocy 31.8 - g/dl Normal No Oct 30 te mean 35.4 informati 2016 5:45 corpuscul on in AM ar source hemoglobi data n concentra tion [Mass/vol ume] by Automated count Erythrocy 82.2 - fl Normal No Oct 30 te mean 97.8 informati 2016 5:45 corpuscul on in AM ar volume source [Entitic data volume] by Automated count Monocytes 0.1 - 1.0 K/mm3 Normal No Oct 30 inform2016 5:45 [#/volume on in AM ] in source Blood by data Automated count Monocytes 1.7 - 9.3 % Normal No Oct 30 informati 2016 5:45 leukocyte on in AM s in source Blood by data Automated count Platelet 7.4 - fl Low Oct 30 mean 10.4 informati 2016 5:45 volume on in AM [Entitic source volume] data in Blood by Automated count Platelets 142 - 424 K/mm3 Normal No Oct 30 inform2016 5:45 [#/volume on in AM ] in source Blood data Erythrocy 4.2 - 5.4 M/mm3 Normal No Oct 30 karlos informati 2016 5:45 [#/volume on in AM ] in source Amniotic data fluid Erythrocy 11.5 - % Normal Oct 30 te 17.5 informati 2016 5:45 distribut on in AM ion width source [Entitic data volume] by Automated count Leukocyte 4.8 - K/MM3 High No Oct 30 s 10.8 informati 2016 5:45 [#/volume on in AM ] in source Blood data Differential panel, method unspecified - Observa Value Referen Units Interpr Notes Date tion ce etation Range Neutrophi 0 - 8 % Normal Oct 30 ls.band informati 2016 5:45 form/100 on in AM leukocyte source s in data Blood by Automated count LYMPH 9 10 - 50 % Low Oct 302016 tion in 5:45 AM source data Monocytes 2 - 9 % Low No Oct 30 informati 2016 5:45 leukocyte on in AM s in source Blood by data Automated count Platele NORMAL No No No Oct 30 ts informa informa informa informa 2016 [Presen tion in tion in tion in tion in 5:45 AM ce] in source source source source Blood data data data data by Light microsc opy Neutrophi 42 - 76 % High Oct 30 ls informati 2016 5:45 [#/volume on in AM ] in source Blood by data Automated count Cells No #CELLS No Oct 30 Counted informati informati informati 2016 5:45 Total [#] on in on in on in AM in Blood source source source data data data Basic metabolic panel in Blood Observa Value Referen Units Interpr Notes Date tion ce etation Range Urea 7 - 18 mg/dL Normal No Oct 30 nitrogen informati 2016 5:45 [Mass/vol on in AM ume] in source Serum or data Plasma Calcium 8.5 - mg/dL Normal No Oct 30 [Mass/vol 10.1 informati 2016 5:45 ume] in on in AM Serum or source Plasma data Chloride 98 - 107 mmoL/L Normal No Oct 30 [Moles/vo informati 2016 5:45 lume] in on in AM Serum or source Plasma data Carbon 21.0 - mmoL/L Normal No Oct 30 dioxide, 32.0 informati 2016 5:45 total on in AM [Moles/vo source lume] in data Serum or Plasma Creatinin 0.55 - mg/dL No No Oct 30 e 1.02 informati informati 2016 5:45 [Mass/vol on in on in AM ume] in source source Serum or data data Plasma Creatinin 50 - 200 ML/MIN No No Oct 30 e renal informati informati 2016 5:45 clearance on in on in AM source source predicted data data by Cockcroft -Gault formula Estimated 59- ML/MIN No REFERENCE Oct 30 informati RANGE: 2017 5:45 glomerula on in >60 AM r source ML/MIN/1. filtratio data 73 SQUARE n rate METERSIf (GF this patient is -A merican, then multiply theresult by 1.210. Glucose 74 - 106 mg/dL High No Oct 30 [Mass/vol informati 2016 5:45 ume] in on in AM Serum or source Plasma data Potassium 3.5 - 5.1 mmoL/L Normal No Oct 30 informati 2016 5:45 [Moles/vo on in AM lume] in source Serum or data Plasma Sodium 136 - 145 mmoL/L Normal No Oct 30 [Moles/vo informati 2016 5:45 lume] in on in AM Serum or source Plasma data CBC W Auto Differential panel in Blood Observa Value Referen Units Interpr Notes Date tion ce etation Range Basophils 0 - 0.2 K/MM3 Normal No Oct 292016 2:40 [#/volume on in AM ] in source Blood by data Automated count Basophils 0.1 - 2.0 % Normal No Oct 29 /100 informati 2016 2:40 leukocyte on in AM s in source Blood by data Automated count Eosinophi 0.0 - 0.4 K/mm3 Normal No Oct 29 ls informati 2016 2:40 [#/volume on in AM ] in source Blood by data Automated count Eosinophi 0.1 - % Normal No Oct 29 ls/100 12.0 informati 2016 2:40 leukocyte on in AM s in source Blood by data Automated count Granulocy 1.8 - 7.8 K/mm3 High No Oct 29 karlos informati 2016 2:40 [#/volume on in AM ] in source Blood by data Automated count Granulocy 37.0 - % High No Oct 29 karlos/100 80.0 informati 2016 2:40 leukocyte on in AM s in source Blood by data Automated count Hematocri 37.0 - % Normal No Oct 29 t [Volume 47.0 informati 2016 2:40 on in AM Fraction] source of Blood data Hemoglobi 12.2 - g/dL Normal No Oct 29 n 16.2 informati 2016 2:40 [Mass/vol on in AM ume] in source Blood data Lymphocyt 0.7 - 4.5 K/mm3 Normal No Oct 29 es informati 2016 2:40 [#/volume on in AM ] in source Unspecifi data ed specimen by Automated count Lymphocyt 10 - 50.0 % Low No Oct 29 es informati 2016 2:40 [#/volume on in AM ] in source Unspecifi data ed specimen by Automated count Erythrocy 27 - 31.2 pg Normal No Oct 29 te mean informati 2016 2:40 corpuscul on in AM ar source hemoglobi data n [Entitic mass] Erythrocy 31.8 - g/dl Normal No Oct 29 te mean 35.4 informati 2016 2:40 corpuscul on in AM ar source hemoglobi data n concentra tion [Mass/vol ume] by Automated count Erythrocy 82.2 - fl Normal No Oct 29 te mean 97.8 informati 2016 2:40 corpuscul on in AM ar volume source [Entitic data volume] by Automated count Monocytes 0.1 - 1.0 K/mm3 Normal No Oct 29 informati 2016 2:40 [#/volume on in AM ] in source Blood by data Automated count Monocytes 1.7 - 9.3 % Normal No Oct 29 /100 informati 2016 2:40 leukocyte on in AM s in source Blood by data Automated count Platelet 7.4 - fl Low No Oct 29 mean 10.4 informati 2016 2:40 volume on in AM [Entitic source volume] data in Blood by Automated count Platelets 142 - 424 K/mm3 Normal No Oct 29 informati 2016 2:40 [#/volume on in AM ] in source Blood data Erythrocy 4.2 - 5.4 M/mm3 Normal No Oct 29 karlos informati 2016 2:40 [#/volume on in AM ] in source Amniotic data fluid Erythrocy 11.5 - % Normal No Oct 29 te 17.5 informati 2016 2:40 distribut on in AM ion width source [Entitic data volume] by Automated count Leukocyte 4.8 - K/MM3 High No Oct 29 s 10.8 informati 2017 2:40 [#/volume on in AM ] in source Blood data Differential panel, method unspecified - Observa Value Referen Units Interpr Notes Date tion ce etation Range Neutrophi 0 - 8 % High No Oct 29 ls.band informati 2017 2:40 form/100 on in AM leukocyte source s in data Blood by Automated count LYMPH 6 10 - 50 % Low No Oct 29 inform2016 tion in 2:40 AM source data Monocytes 2 - 9 % Low No Oct 21 /100 informati 2016 2:40 leukocyte on in AM s in source Blood by data Automated count Platele NORMAL No No No No Oct 29 ts informa informa informa informa 2016 [Presen tion in tion in tion in tion in 2:40 AM ce] in source source source source Blood data data data data by Light microsc opy Neutrophi 42 - 76 % High No Oct 29 ls informati 2016 2:40 [#/volume on in AM ] in source Blood by data Automated count Erythro NORMAL No No No No Oct 29 cyte informa informa informa informa 2017 morphol tion in tion in tion in tion in 2:40 AM ogy source source source source finding data data data data [Identi fier] in Blood Cells No #CELLS No No Oct 29 Counted informati informati informati 2016 2:40 Total [#] on in on in on in AM in Blood source source source data data data Lactate [Moles/volume] in Blood Observa Value Referen Units Interpr Notes Date tion ce etation Range Lactate 0.4 - 2.0 mmol/L Normal No Oct 29 [Moles/vo informati 2017 2:40 lume] in on in AM Blood source data Comprehensive metabolic 2000 panel in Serum or Plasma Observa Value Referen Units Interpr Notes Date tion ce etation Range Albumin/G 1.1 - 1.8 No Normal No Oct 27 lobulin informati informati 2017 2:02 [Mass on in on in PM ratio] in source source Serum or data data Plasma Albumin 3.4 - 5.0 gm/dL Normal No Oct 27 [Mass/vol informati 2017 2:02 ume] in on in PM Serum or source Plasma data Alkaline 46 - 116 U/L Normal No Oct 27 phosphata informati 2017 2:02 se on in PM [Enzymati source c data activity/ volume] in Serum or Plasma Bilirubin 0.2 - 1.0 mg/dL High No Oct 27 .total informati 2017 2:02 [Mass/vol on in PM ume] in source Serum or data Plasma Urea 7 - 18 mg/dL Normal No Oct 27 nitrogen informati 2016 2:02 [Mass/vol on in PM ume] in source Serum or data Plasma Calcium 8.5 - mg/dL Normal No Oct 27 [Mass/vol 10.1 informati 2017 2:02 ume] in on in PM Serum or source Plasma data Chloride 98 - 107 mmoL/L Normal No Oct 27 [Moles/vo informati 2016 2:02 lume] in on in PM Serum or source Plasma data Carbon 21.0 - mmoL/L Normal No Oct 27 dioxide, 32.0 informati 2017 2:02 total on in PM [Moles/vo source lume] in data Serum or Plasma Creatinin 0.55 - mg/dL Normal No Oct 27 e 1.02 informati 2017 2:02 [Mass/vol on in PM ume] in source Serum or data Plasma Creatinin 50 - 200 ML/MIN Normal No Oct 27 e renal informati 2017 2:02 clearance on in PM source predicted data by Cockcroft -Gault formula Estimated 59- ML/MIN No REFERENCE Oct 27 informati RANGE: 2017 2:02 glomerula on in >60 PM r source ML/MIN/1. filtratio data 73 SQUARE n rate METERSIf (GF this patient is -A merican, then multiply theresult by 1.210. Globulin 1.3 - 3.2 gm/dL High No Oct 27 [Mass/vol informati 2017 2:02 ume] in on in PM Serum source data Glucose 74 - 106 mg/dL Normal No Oct 27 [Mass/vol informati 2016 2:02 ume] in on in PM Serum or source Plasma data Potassium 3.5 - 5.1 mmoL/L Normal MAY BE Oct 27 ELEVATED 2016 2:02 [Moles/vo DUE TO PM lume] in SLIGHT Serum or HEMOLYSIS Plasma Sodium 136 - 145 mmoL/L Normal No Oct 27 [Moles/vo informati 2016 2:02 lume] in on in PM Serum or source Plasma data Aspartate 15 - 37 U/L Normal MAY BE Oct 27 ELEVATED 2016 2:02 aminotran DUE TO PM sferase SLIGHT [Enzymati HEMOLYSIS c activity/ volume] in Serum or Plasma Alanine 12 - 78 U/L Normal No Oct 27 aminotran informati 2016 2:02 sferase on in PM [Enzymati source c data activity/ volume] in Serum or Plasma Protein 6.4 - 8.2 gm/dL Normal No Oct 27 [Mass/vol informati 2016 2:02 ume] in on in PM Serum or source Plasma data CBC W Auto Differential panel in Blood Observa Value Referen Units Interpr Notes Date tion ce etation Range Granulocy 1.8 - 7.8 K/mm3 High No Oct 27 karlos informati 2016 2:02 [#/volume on in PM ] in source Blood by data Automated count Granulocy 37.0 - % High No Oct 27 karlos/100 80.0 ati 2016 2:02 leukocyte on in PM s in source Blood by data Automated count Hematocri 37.0 - % Normal Oct 27 t [Volume 47.0 ati 2016 2:02 on in PM Fraction] source of Blood data Hemoglobi 12.2 - g/dL Normal No Oct 27 n 16.2 informati 2016 2:02 [Mass/vol on in PM ume] in source Blood data Lymphocyt 0.7 - 4.5 K/mm3 Normal No Oct 27 es informati 2016 2:02 [#/volume on in PM ] in source Unspecifi data ed specimen by Automated count Lymphocyt 10 - 50.0 % Low No Oct 27 es informati 2016 2:02 [#/volume on in PM ] in source Unspecifi data ed specimen by Automated count Erythrocy 27 - 31.2 pg Normal No Oct 27 te mean informati 2017 2:02 corpuscul on in PM ar source hemoglobi data n [Entitic mass] Erythrocy 31.8 - g/dl Normal No Oct 27 te mean 35.4 informati 2016 2:02 corpuscul on in PM ar source hemoglobi data n concentra tion [Mass/vol ume] by Automated count Erythrocy 82.2 - fL Normal No Oct 27 te mean 97.8 informati 2016 2:02 corpuscul on in PM ar volume source [Entitic data volume] by Automated count Monocytes 0.1 - 1.0 K/mm3 Normal No Oct 27 inform2016 2:02 [#/volume on in PM ] in source Blood by data Automated count Monocytes 1.7 - 9.3 % Normal Oct 27 inform2016 2:02 leukocyte on in PM s in source Blood by data Automated count Platelets 142 - 424 K/mm3 Normal No Oct 272016 2:02 [#/volume on in PM ] in source Blood data Erythrocy 4.2 - 5.4 M/mm3 Normal No Oct 27 karlos ati 2016 2:02 [#/volume on in PM ] in source Amniotic data fluid Erythrocy 11.5 - % Normal No Oct 27 te 17.5 ati 2016 2:02 distribut on in PM ion width source [Entitic data volume] by Automated count Leukocyte 4.8 - K/mm3 Normal No Oct 27 s 10.8 2016 2:02 [#/volume on in PM ] in source Blood data Differential panel, method unspecified - Observa Value Referen Units Interpr Notes Date tion ce etation Range Lymphocyt 0 - 5 % Normal No Oct 27 es ati 2016 2:02 Variant/1 on in PM 00 source leukocyte data s in Blood by Manual count Neutrophi 0 - 8 % Normal No Oct 27 ls.band ati 2016 2:02 form/100 on in PM leukocyte source s in data Blood by Automated count LYMPH 5 10 - 50 % Low No Oct 272016 tion in 2:02 PM source data Monocytes 2 - 9 % Normal No Oct 27 informati 2016 2:02 leukocyte on in PM s in source Blood by data Automated count Platele NORMAL No No No No Oct 27 ts informa informa informa inform2016 [Presen tion in tion in tion in tion in 2:02 PM ce] in source source source source Blood data data data data by Light microsc opy Neutrophi 42 - 76 % High No Oct 27 ls informati 2016 2:02 [#/volume on in PM ] in source Blood by data Automated count Cells No #CELLS No No Oct 27 Counted informati informati informati 2017 2:02 Total [#] on in on in on in PM in Blood source source source data data data Lactate [Moles/volume] in Blood Observa Value Referen Units Interpr Notes Date tion ce etation Range Lactate 0.4 - 2.0 mmol/L Normal No Oct 27 [Moles/vo informati 2017 2:02 lume] in on in PM Blood source data
--- OUTSIDE RECORDS SUMMARY | 2016-12-12 04:46 | External Medical Summary Rpt ---
Author Author , ADDISON JAIME Address Unknown Phone [email or web address] Purpose Continuity of Care Document - 10-08-2016 through 2016 Problems Code Diagnosis DOS Provider Status J18.9 PNEUMONIA, UNSPECIFIED ORGANISM J44.9 CHRONIC OBSTRUCTIVE PULMONARY DISEASE, UNSPECIFIED J45.909 UNSPECIFIED ASTHMA, UNCOMPLICAT ED M25.559 PAIN IN UNSPECIFIED HIP Z12.31 Encounter for screening mammogram for malignant neoplasm of breast Results Labs Lab Lab Date Result Refere Interp Status Commen Order Detail nces retati t Range on CRP SerPl-mCnc (11-16-2016 12:52) CRP 0.8 0-0.9 complet SerPl-m 017 mg/dL ed Cnc 12:52 BOBO SerPl-cCnc (11-16-2016 12:52) BOBO 36 U/L 9-67 complet SerPl-c 017 ed Cnc 12:52 ESR Bld Qn (11-16-2016 12:33) ESR Bld 22 0-20 complet Qn 017 mm/hr ed 12:33 IgE SerPl-aCnc (10-08-2016 12:34) IgE 4 kU/L 114 OR complet SerPl-a 017 LESS ed Cnc 12:34 BOBO SerPl-cCnc (10-08-2016 12:34) BOBO 63 U/L 9-67 complet SerPl-c 017 ed Cnc 12:34 Neutrophil Ab Ser Ql FC (10-08-2016 12:33) Neutrop NONE NONE complet hil Ab 017 DETECTE DETECTE ed Ser Ql 12:33 D D FC JOHNIE Pat Ser IF-Imp (10-08-2016 12:33) JOHNIE Pat [id number] complet Ser 017 04 ed IF-Imp 12:33 Nucleol ar pattern SCT NCLR NUCLEOL AR L JOHNIE Titr Ser HEp2 subst (10-08-2016 12:33) JOHNIE [id number] complet Titr 017 04 ed Ser 12:33 antibod HEp2 y titer subst measure ment SCT D160 POSITIV E THROUGH 1:160 CAROLEE Rosado
--- OUTSIDE RECORDS SUMMARY | 2016-12-12 04:46 | External Medical Summary Rpt ---
Demographics Preferred Language Haitian Marital Status Unknown Islam Affiliation Unknown Race Unknown Ethnic Group Unknown Author Author ADDISON Address Unknown Phone Immunization No patient found.
--- OUTSIDE RECORDS SUMMARY | 2016-12-12 04:46 | External Medical Summary Rpt ---
Author Author , ADDISON JAIME Address Unknown Phone [email or web address] Purpose Continuity of Care Document - 10-08-2016 [...] Pat Ser IF-Imp (10-08-2016 12:33) JOHNIE Pat [id number] complet Ser 017 04 ed IF-Imp 12:33 Nucleol ar pattern SCT NCLR NUCLEOL AR L JOHNIE Titr Ser HEp2 subst (10-08-2016 12:33) JOHNIE [id number] complet Titr 017 04 ed Ser 12:33 antibod HEp2 y titer subst measure ment SCT D160 POSITIV E THROUGH 1:160 CAROLEE Rosado
== END 2016-10-31 14:10 | disposition home or self-care (01) ==
LOC: ER 02:09 → 2ND 04:28 → ER 04:28 → ICU 04:28 → 2ND 04:53 → ICU 04:53 → 2ND 05:03
PROVIDERS: Emergency Medicine
DX: J18.9 Pneumonia, unspecified organism (principal); J44.9 Chronic obstructive pulmonary disease, unspecified; R06.09 Other forms of dyspnea; I45.6 Pre-excitation syndrome
CPT/HCPCS: G0378; J0456

== ENCOUNTER → 2017-01-28 | Outpatient (CLI) | payer BC ==
[~2017-01-28] MED LIST changes: +BISOPROLOL 5MG T5 MG PO; +CIPRO 500MG TA500 MG PO; +ESTRADIOL0.5 MG PO; +FLAGYL500 M1 PO; +HYDROCODONE/APA1 TA8 PO; +HYOSCYAMINE0.125 M3 PO; +PHENERGAN12.5 M3 PO; +PREDNISONE 20MG20 MG PO; +ZANTAC 150150 MG PO; +ZITHROMAX Z PA250 MG PO
== END ==
LOC: SL 20:09
DX: G47.30 Sleep apnea, unspecified (principal); G47.31 Primary central sleep apnea; I10 Essential (primary) hypertension

== ENCOUNTER 2017-02-01 08:58 | Emergency (ER) | payer BC ==
[~2017-02-01] VITALS: Ht 162.6 cm; Wt 86.2 kg
[~2017-02-01 08:58] MED LIST changes: -CIPRO 500MG TA500 MG PO; -FLAGYL500 M1 PO; -HYDROCODONE/APA1 TA8 PO; -HYOSCYAMINE0.125 M3 PO; -PHENERGAN12.5 M3 PO
--- OUTSIDE RECORDS SUMMARY | 2017-02-01 09:04 | External Medical Summary Rpt | CCD ---
Author Author , ADDISON JAIME Address Unknown Phone [email or web address] Purpose Continuity of Care Document - 10-08-2016 through 2016 Problems Code Diagnosis DOS Provider Status J18.9 PNEUMONIA, UNSPECIFIED ORGANISM J44.9 CHRONIC OBSTRUCTIVE PULMONARY DISEASE, UNSPECIFIED J45.909 UNSPECIFIED ASTHMA, UNCOMPLICAT ED M25.559 PAIN IN UNSPECIFIED HIP Z12.31 Encounter for screening mammogram for malignant neoplasm of breast Results Labs Lab Lab Date Result Refere Interp Status Commen Order Detail nces retati t Range on ADDY Prep XXX (12-21-2016 17:39) ADDY [id number] complet 017 03 ed 17:39 sample: fungus not isolate d (findin g) SCT NOFEO NO FUNGAL ELEMENT S OBSERVE D L Fungus Tiss Cult (12-21-2016 17:39) Bacteri [id number] complet a XXX 017 03 ed Anaerob 17:39 sample: e+Aerob fungus e Cult not isolate d (findin g) SCT NF42 NO FUNGAL GROWTH AT 6 WEEKS L Bacteri [id number] complet a XXX 017 03 ed Anaerob 17:39 sample: e+Aerob fungus e Cult not isolate d (findin g) SCT NF21 NO FUNGAL GROWTH AT 3 WEEKS L SPECIME RCVD complet N 017 ORDER ed CONTAIN 17:39 PROCESS ER ED. L INFO: Mycobacterium XXX Ql Cult (12-21-2016 17:39) Bacteri [id number] complet a XXX 017 00 not ed Anaerob 17:39 isolate e+Aerob d e Cult (qualif ier value) SCT NM21 NO ACID FAST BACILLI ISOLATE D AT 3 WEEKS L SPECIME TISS complet N 017 TISSUE ed CONTAIN 17:39 L ER INFO: SPECIME SUBM complet N 017 MODE OF ed CONTAIN 17:39 ER SUBMISS INFO: ION: L SPECIME RCVD complet N 017 ORDER ed CONTAIN 17:39 PROCESS ER ED. L INFO: Acid fast Stn XXX Ql (12-21-2016 17:39) ACID [id number] complet FAST 017 8 not ed STAIN 17:39 seen (qualif ier value) SCT NOAFB NO AFB SEEN L Bacteria Tiss Cult (12-21-2016 17:39) Bacteri [id number] complet a XXX 017 09 ed Anaerob 17:39 Strepto e+Aerob coccus e Cult mitis or Strepto coccus oralis (findin g) SCT SMORA STREPTO COCCUS MITIS/O RALIS GROUP L SPECIME RCVD complet N 017 ORDER ed CONTAIN 17:39 PROCESS ER ED. L INFO: CC XXX NOTAP complet VC-aCnc 017 NOT ed 17:39 APPLICA BLE L BOBO SerPl-cCnc (11-16-2016 12:52) BOBO 36 U/L 9-67 complet SerPl-c 017 ed Cnc 12:52 CRP SerPl-mCnc (11-16-2016 12:52) CRP 0.8 0-0.9 complet SerPl-m 017 mg/dL ed Cnc 12:52 ESR Bld Qn (11-16-2016 12:33) ESR Bld 22 0-20 complet Qn 017 mm/hr ed 12:33 BOBO SerPl-cCnc (10-08-2016 12:34) BOBO 63 U/L 9-67 complet SerPl-c 017 ed Cnc 12:34 IgE SerPl-aCnc (10-08-2016 12:34) IgE 4 kU/L 114 OR complet SerPl-a 017 LESS ed Cnc 12:34 JOHNIE Titr Ser HEp2 subst (10-08-2016 12:33) JOHNIE [id number] complet Titr 017 04 ed Ser 12:33 antibod HEp2 y titer subst measure ment SCT D160 POSITIV E THROUGH 1:160 DILUTIO N L JOHNIE Pat Ser IF-Imp (10-08-2016 12:33) JOHNIE Pat [id number] complet Ser 017 04 ed IF-Imp 12:33 Nucleol ar pattern SCT NCLR NUCLEOL AR L Neutrophil Ab Ser Ql FC (10-08-2016 12:33) Neutrop 10-08- NONE NONE complet hil Ab 017 DETECTE DETECTE ed Ser Ql 12:33 D D FC
--- OUTSIDE RECORDS SUMMARY | 2017-02-01 09:04 | External Medical Summary Rpt | CCD ---
Author Author , ADDISON JAIME Address Unknown Phone [email or web address] Purpose Continuity of Care Document - 10-08-2016 [...] on ADDY Prep XXX (12-21-2016 17:39) ADDY [id number] complet 017 03 ed 17:39 sample: fungus not isolate d (findin g) SCT NOFEO NO FUNGAL ELEMENT S OBSERVE D L Fungus Tiss Cult (12-21-2016 17:39) Bacteri [id number] complet a XXX 017 03 ed Anaerob 17:39 sample: e+Aerob fungus e Cult not isolate d (findin g) SCT NF42 NO FUNGAL GROWTH AT 6 WEEKS L Bacteri [id number] complet a XXX 017 03 ed Anaerob 17:39 sample: e+Aerob fungus e Cult not isolate d (findin g) SCT NF21 NO FUNGAL GROWTH AT 3 WEEKS L SPECIME RCVD complet N 017 ORDER ed CONTAIN 17:39 PROCESS ER ED. L INFO: Mycobacterium XXX Ql Cult (12-21-2016 17:39) Bacteri [id number] complet a XXX 017 00 not ed [...] fast Stn XXX Ql (12-21-2016 17:39) ACID [id number] complet FAST 017 8 not ed STAIN 17:39 seen (qualif ier value) SCT NOAFB NO AFB SEEN L Bacteria Tiss Cult (12-21-2016 17:39) Bacteri [id number] complet a XXX 017 09 ed Anaerob [...] Titr Ser HEp2 subst (10-08-2016 12:33) JOHNIE [id number] complet Titr 017 04 ed Ser 12:33 antibod HEp2 y titer subst measure ment SCT D160 POSITIV E THROUGH 1:160 DILUTIO N L JOHNIE Pat Ser IF-Imp (10-08-2016 12:33) JOHNIE Pat [id number] complet Ser 017 04 ed IF-Imp 12:33 Nucleol ar pattern SCT NCLR NUCLEOL AR L Neutrophil Ab Ser Ql FC (10-08-2016 12:33) Neutrop 10-08- NONE NONE complet hil Ab 017 DETECTE DETECTE ed Ser Ql 12:33 D D FC
--- OUTSIDE RECORDS SUMMARY | 2017-02-01 09:04 | External Medical Summary Rpt | CCD ---
Author Author , ADDISON JAIME Address Unknown Phone [email or web address] Support Name Relationship Address Phone DANY, Next Of Kin Unknown Unavailable ARELY Immunization Name Date Rout CVX Reac Dose Comm Prov Is Faci e tion ent ider Refu lity Give sed n Flu 10-2 Intr 0.5 Hist CVS2 No CVS2 MDCK 8-20 amus mL oric 332 332 17 cula al Quad r Info rmat P-Fr ion ee - Inj Sour ce Unsp ecif ied
--- OUTSIDE RECORDS SUMMARY | 2017-02-01 09:04 | External Medical Summary Rpt | CCD ---
Author Author , ADDISON JAIME Address Unknown Phone [email or web address] Support Name Relationship Address Phone DANY, Next [...]
[2017-02-01] MEDS ORDERED: HYOSCYAMINE0.125 M3 PO (09:31)
--- NOTE | 2017-02-01 09:41 | Urgent Treatment Center Report ---
History of Present Issue Date/Time Seen by Provider 02/01/17 09 Visit Reason Pt arrived:Walked Presenting Problem:LOWER ABD PAIN, FEVER DENIES ANY N/V/D ADVISES SHE IS PASSING BLOODY MUCUS PT REPORTS HX OF DIVERTICULITIS-STATES THAT IS WHAT SHE THINKS IS GOING ON NOW. PT SENT FROM [facility] FOR FURTHER EVALUATION. Location if Accident: Onset of symptoms date/time:/ or onset unknown for:MEDICAL HX UNKNOWN Have you (or family members/close friends) recently traveled outside the [place]? N If Yes, where/when: Have you had exposure to infectious disease within the past month? N TB? Other? Specify: c/o "I know I have diverticulitis again". Hx of it. c/o LLQ abdominal pain since Saturday. However, since onset pain has become constant and more severe. Currently -10/18. Sharp. "Feel like someone in there pulling my intestines out". Advil and tylenol no longer helping. Unable to sleep due to pain. Pain worse when sitting and therefore, has been standing. Fevers 100-101 last 48 hours. passing only bloody mucous from rectum since yesterday. Denies N/V. Source patient Exam Limitations no limitations ALLERGIES Coded Allergies: No Known Allergies (09/25/16) Home Medications Active Scripts ALBUTEROL (Albuterol 0.083% Neb) 2.5 MG INH QID #120 VIAL Ref 1 Prov: 10/27/16 Reported Medications Escitalopram Oxalate 10 MG PO DAILY #90 Hyoscyamine Sulfate 0.125 MG PO Q6HP PRN ABD PAIN #60 Estradiol 0.5 MG PO DAILY BISOPROLOL FUMARATE (Bisoprolol 5MG) 10 MG PO DAILY History Medical History General CAD? No Angina: No [place]: No Hypertension? No Hyperlipidemia? Yes CHF? No DVT? No PE? No COPD? No Asthma? No Anemia? No GERD? No Gastric ulcers? No GI Bleed? No Hernia? No Thyroid Problems? No Hypothyroidism? No CVA? No Seizures? No Diabetes? No Renal Insuffiency? No UTI? Yes Stones? No GB Disease: No Nephritic Syndrome? No Asplenia? No Hepatitis? No Sickle Cell Disease? No Arthritis? Yes Migraines? No Cataracts? No Glaucoma? No MRSA? No HIV? No TB? No Anxiety? Yes Depression? No Cancer? No More? 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 Musculoskeletal denies back pain Psychiatric/Neurological denies headache, denies other (dizziness) Physical Exam Vital Signs Vital Signs Date Time Temp Pulse Resp B/P Pulse O2 O2 Flow FiO2 Ox Delivery Rate 02/01 927 98.8 91 16 129/79 95 02/01 921 98.8 89 16 124/82 95 General Appearance mild distress (standing, guarding LLQ) Respiratory Status No: respiratory distress. Cardiovascular regular rate/rhythm, no peripheral edema, no murmur Gastrointestinal soft, no organomegaly, no pulsatile mass, abnormal bowel sounds (hypoactive), guarding (LLQ), no rebound, tenderness (jordy Lower quad) Back no CVA tenderness Neurologic alert, oriented x 3 Skin normal color, warm/dry Lymphatic no adenopathy Medical Decision Making LABS/Meds/Orders Pt receiving controlled substance in ED? No Progress [facility] Progress Notes 1 Date 02/01/17 Time 09 Comment Discussed possible differentials with patient, [facility] guidelines and further workup necessary. Pt agreeable to transfer to ER. 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 Pt assisted to ER by Adelia Departure Departure Time of Disposition 923 Disposition Still a Patient Clinical Impression Primary Impression: Abdominal pain, bilateral lower quadrant Condition STABLE at 0940
--- NOTE | 2017-02-01 09:41 | Urgent Treatment Center Report ---
History of Present Issue Date/Time Seen by Provider 02/01/17 09 Visit Reason Pt arrived:Walked Presenting Problem:LOWER ABD PAIN, FEVER DENIES ANY N/V/D ADVISES SHE IS PASSING BLOODY MUCUS PT REPORTS HX OF DIVERTICULITIS-STATES THAT IS WHAT SHE THINKS IS GOING ON NOW. PT SENT FROM [facility] FOR FURTHER EVALUATION. Location if Accident: Onset of symptoms date/time:/ or onset unknown for:MEDICAL HX UNKNOWN Have you (or family members/close friends) recently traveled outside the [place]? N If Yes, where/when: Have you had exposure to infectious disease within the past month? N TB? Other? Specify: c/o "I know I have diverticulitis again". Hx of it. c/o LLQ abdominal pain since Saturday. However, since onset pain has become constant and more severe. Currently -10/18. Sharp. "Feel like someone in there pulling my intestines out". Advil and tylenol no longer helping. Unable to sleep due to pain. Pain worse when sitting and therefore, has been standing. Fevers 100-101 last 48 hours. passing only bloody mucous from rectum since yesterday. Denies N/V. Source patient Exam Limitations no limitations ALLERGIES Coded Allergies: No Known Allergies (09/25/16) Home Medications Active Scripts ALBUTEROL (Albuterol 0.083% Neb) 2.5 MG INH QID #120 VIAL Ref 1 Prov: 10/27/16 Reported Medications Escitalopram Oxalate 10 MG PO DAILY #90 Hyoscyamine Sulfate 0.125 MG PO Q6HP PRN ABD PAIN #60 Estradiol 0.5 MG PO DAILY BISOPROLOL FUMARATE (Bisoprolol 5MG) 10 MG PO DAILY History Medical History General CAD? No Angina: No [place]: No Hypertension? No Hyperlipidemia? Yes CHF? No DVT? No PE? No COPD? No Asthma? No Anemia? No GERD? No Gastric ulcers? No GI Bleed? No Hernia? No Thyroid Problems? No Hypothyroidism? No CVA? No Seizures? No Diabetes? No Renal Insuffiency? No UTI? Yes Stones? No GB Disease: No Nephritic Syndrome? No Asplenia? No Hepatitis? No Sickle Cell Disease? No Arthritis? Yes Migraines? No Cataracts? No Glaucoma? No MRSA? No HIV? No TB? No Anxiety? Yes Depression? No Cancer? No More? 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 Musculoskeletal denies back pain Psychiatric/Neurological denies headache, denies other (dizziness) Physical Exam Vital Signs Vital Signs Date Time Temp Pulse Resp B/P Pulse O2 O2 Flow FiO2 Ox Delivery Rate 02/01 927 98.8 91 16 129/79 95 02/01 921 98.8 89 16 124/82 95 General Appearance mild distress (standing, guarding LLQ) Respiratory Status No: respiratory distress. Cardiovascular regular rate/rhythm, no peripheral edema, no murmur Gastrointestinal soft, no organomegaly, no pulsatile mass, abnormal bowel sounds (hypoactive), guarding (LLQ), no rebound, tenderness (jordy Lower quad) Back no CVA tenderness Neurologic alert, oriented x 3 Skin normal color, warm/dry Lymphatic no adenopathy Medical Decision Making LABS/Meds/Orders Pt receiving controlled substance in ED? No Progress [facility] Progress Notes 1 Date 02/01/17 Time 09 Comment Discussed possible differentials with patient, [facility] guidelines and further workup necessary. Pt agreeable to transfer to ER. Report given to Livia, CREDIT DEPARTMENT MANAGER. Pt assisted to ER by Adelia Departure Departure Time of Disposition 923 Disposition Still a Patient Clinical Impression Primary Impression: Abdominal pain, bilateral lower quadrant Condition STABLE at 0940
--- NOTE | 2017-02-01 09:45 | Emergency Room Report ---
See Addendum History of Present Illness Time Seen by MD Adame Presenting Problem in Triage Pt arrived:Walked Presenting Problem:LOWER ABD PAIN, FEVER DENIES ANY N/V/D ADVISES SHE IS PASSING BLOODY MUCUS PT REPORTS HX OF DIVERTICULITIS-STATES THAT IS WHAT SHE THINKS IS GOING ON NOW. PT SENT FROM [facility] FOR FURTHER EVALUATION. 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 Y Clinical Suspician of Infection? N Mental Status: 1 - Regular (Normal Baseline) Sepsis Risk:Low Sepsis Risk Have you (or family members/close friends) recently traveled outside the [place]? N If Yes, where/when: Have you had exposure to infectious disease within the past month? N TB? Other? Specify: Patient complains of LEFT lower quadrant abdominal pain starting yesterday morning she states she's been feeling feverish she states she's been having some diarrhea and some bloody stools. He states it feels like her previous diverticulitis she states the pain is getting progressively worse it's currently a 7-8/10 and she states it does not radiate. Has nausea no vomiting feels like previous diverticulitis pain ALLERGIES Coded Allergies: No Known Allergies (09/25/16) Home Medications Active Scripts ALBUTEROL (Albuterol 0.083% Neb) 2.5 MG INH QID #120 VIAL Ref 1 Prov: 10/27/16 Reported Medications Escitalopram Oxalate 10 MG PO DAILY #90 Hyoscyamine Sulfate 0.125 MG PO Q6HP PRN ABD PAIN #60 Estradiol 0.5 MG PO DAILY BISOPROLOL FUMARATE (Bisoprolol 5MG) 10 MG PO DAILY History Medical History General CAD? No Angina: No [place]: No Hypertension? No Hyperlipidemia? Yes CHF? No DVT? No PE? No COPD? No Asthma? No Anemia? No GERD? No Gastric ulcers? No GI Bleed? No Hernia? No Thyroid Problems? No Hypothyroidism? No CVA? No Seizures? No Diabetes? No Renal Insuffiency? No End Stage Renal Disease? No UTI? Yes Stones? No GB Disease: No Nephritic Syndrome? No Asplenia? No Hepatitis? No Sickle Cell Disease? No Arthritis? Yes Migraines? No Cataracts? No Glaucoma? No MRSA? No HIV? No TB? No Anxiety? Yes Depression? No Cancer? No More? 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 Eyes: conjunctiva/corneas clear ENT: Mucous membranes moist. Neck: No jugular venous distention. Cardiac: regular rate and rhythm Lungs: Clear to auscultation bilaterally Abdomen: left lower quadrant tender, Nondistended, positive bowel sounds, no rebound : No CVA tenderness Extremities: no edema Musculoskeletal: No chest wall tenderness Skin: No rashes or lesions to exposed skin. Neurologic: Alert. No gross focal deficits Psychiatric: Normal affect (Juany BILLINGSLEY, Jan) General Appearance normal appearance Respiratory Status No: respiratory distress. Cardiovascular normal exam Neurologic alert Medical Decision Making LABS/Meds/Orders Pt receiving controlled substance in ED? Yes Comment 1101 radiology has called with uncomplicated diverticulitis. no abscess no perforation Results/Orders Laboratory Tests 02/01/17 1000: Sodium 142, Potassium 3.9, Chloride 106, Carbon Dioxide 25, BUN 8, Creatinine 0.7, Estimated Creat Clear 126, Estimated GFR (MDRD) 88, Glucose 108 H, Calcium 8.7, Total Bilirubin 1.5 H, AST 18, ALT 20, Alkaline Phosphatase 87, Total Protein 7.5, Albumin 3.7, Globulin 3.8 H, Albumin/Globulin Ratio 1.0 L, Amylase 38, Lipase 62 L, WBC 10.5, RBC 5.22, Hgb 15.3, Hct 44.7, MCV 85.6, RDW 13.3, Plt Count 254, MPV 6.6 L, Gran % 81.0 H, Gran # 8.5 H, Lymphocytes % 10.8, Monocytes % 6.4, Eosinophils % 1.4, Basophils % 0.3, Lymphocytes # 1.1, Monocytes # 0.7, Eosinophils # 0.2, Basophils # 0.0, PUBS MCHC 34.2, MCH 29.3 Current Medication Orders Sig/Alix Start time Last Medication Dose Route Stop Time Status Admin Morphine Sulfate 0 .STK-MED ONE 02/01 1011 DC .ROUTE Famotidine 20 MG ONCE ONE 02/01 1000 DC 02/01 IV 02/01 1001 1010 Levofloxacin/Dextrose 100 ML ONCE ONE 02/01 1000 DCr 02/01 IV 02/01 1059 1037 Sodium Chloride 8 ML ONCE ONE 02/01 1000 DC IV 02/01 1001 Famotidine 0 .STK-MED ONE 02/01 0959 DC IV Levofloxacin/Dextrose 100 ML .STK-MED ONE 02/01 0959 DC IV Sodium Chloride 1,000 ML .STK-MED ONE 02/01 0959 DC IV Ondansetron HCl 0 .STK-MED ONE 02/01 0957 DC .ROUTE Morphine Sulfate 4 MG ONCE ONE 02/01 0945 DC 02/01 IV 02/01 0946 1012 Ondansetron HCl 4 MG ONCE ONE 02/01 0945 DC 02/01 IV 02/01 0946 1010 Sodium Chloride 1,000 ML .Q1H 02/01 0945 DC 02/01 IV 02/01 1145 1010 Sodium Chloride 10 ML PRN PRN 02/01 0945 AC IV 02/02 0945 Sodium Chloride 10 ML PRN PRN 02/01 0945 AC IV 02/02 0945 Orders Procedure Date/time Status DIET-NOTHING BY MOUTH 02/01 L Active STOOL OCCULT BLOOD 02/01 0950 Active DIARRHEA PANEL, PCR 02/[address] ABD REQUEST 02/01 0948 Complete IV SALINE LOCK 02/01 0948 Active URINALYSIS/COMPLETE 02/01 0948 Active LIPASE 02/01 0948 Complete COMPLETE METABOLIC PANEL 02/01 0948 Complete CBC WITH AUTO DIFF 02/01 0948 Complete AMYLASE 02/01 0948 Complete Departure Departure Time of Disposition 1115 Disposition Still a Patient Clinical Impression Primary Impression: Diverticulitis Condition STABLE Referrals Jeremy BILLINGSLEY,Bj (Family) Patient Instructions CONTROLLED SUBSTANCE-[facility], DI for Diverticulitis Additional Instructions clear liquid diet for 48 hours call your doctor for recheck return if worse Discharge Counseling Counseled pt/family regarding diagnosis, test results, R/B of controlled subst., medications/RX, home care, follow up needs Prescriptions Current Visit Scripts HYDROCODONE/ACETAMINOPHEN (LORTAB 5-325 (generic)) 1 TAB PO Q6HP PRN PAIN #10 TAB Ciprofloxacin HCl (Cipro 500MG TAB) 500 MG PO BID #20 TAB Metronidazole (Flagyl) 500 MG PO TID #30 TAB PROMETHAZINE HCL (Phenergan 12.5MG Tab (Geq)) 12.5 MG PO Q6HP PRN NAUSEA #10 TAB ED Critical Care Critical Care No Comments [id number] frances number at 1110
[2017-02-01 10:09] LABS: HEMOGLOBIN 15.3 g/dL (12.2-16.2); LYMPH # 1.1 K/mm3 (0.7-4.5); LYMPH % 10.8 % (10-50.0)
--- NOTE | 2017-02-01 11:10 | RADIOLOGY REPORT PS360 ---
CT ABD PELVIS W/O CONTRAST COMPARISON: None HISTORY: Left lower quadrant pain nausea, diarrhea, previous history of diverticulitis TECHNIQUE: Multiaxial scans obtained from the hemidiaphragms the pelvic floor and were performed without IV or oral contrast. Sagittal coronal reformats were evaluated as well. FINDINGS: The lower lung hopson are clear. There is a well-defined nodular density pericardial fat left side likely small lymph node. The liver is normal size and there is a hypodense lesion posterior aspect of the left lobe measuring 2.2 x 2.9 cm likely a hepatic cyst. Spleen and pancreas appear normal, there has been a previous cholecystectomy. The adrenal glands are normal. The kidneys are normal in size and there are no calculi and is no obstructive uropathy of either kidney. Small bowel appears normal. The appendix is normal and retrocecal in location. There is moderate stool in the ascending and transverse colon. There are couple of diverticuli of the ascending colon and there are scattered diverticuli of the descending and sigmoid colon. There is prominent pericolonic fat stranding of the lower sigmoid colon near the junction with the rectum the appearance consistent with acute diverticulitis. There is no definite respiration or abscess seen. There is a tiny umbilical hernia with fat only bladder appears normal, there has been a previous hysterectomy. IMPRESSION: Scattered diverticulosis throughout the entire colon with focal diverticulitis involving the lower sigmoid colon and rectosigmoid junction
[2017-02-01] MEDS ORDERED: CIPRO 500MG TA500 MG PO (11:13)
[2017-02-01] MEDS ORDERED: HYDROCODONE/APA1 TA8 PO (11:13)
[2017-02-01] MEDS ORDERED: PHENERGAN12.5 M3 PO (11:13)
[2017-02-01] MEDS ORDERED: FLAGYL500 M1 PO (11:13)
[2017-02-01 12:00] VITALS: BP 124/80
== END 2017-02-01 13:00 | disposition still patient (30) ==
LOC: UTC 08:58 → ER 09:01 → UTC 09:01 → ER 13:00
PROVIDERS: Emergency Medicine
DX: K57.92 Diverticulitis of intestine, part unspecified, without perforation or abscess without bleeding (principal); E78.5 Hyperlipidemia, unspecified; I45.6 Pre-excitation syndrome
CPT/HCPCS: J1956; J2405